=== PATIENT | female | born 1955 | race Two or more races ===

== ENCOUNTER 2021-09-15 15:32 | Emergency (ER) | payer OTHER ==
[~2021-09-15] VITALS: Ht 157.5 cm; Wt 68.0 kg
== END 2021-09-15 20:43 | disposition home or self-care (01) ==
LOC: ER 15:32
DX: S00.03XA Contusion of scalp, initial encounter (principal); S06.0X0A Concussion without loss of consciousness, initial encounter; S50.01XA Contusion of right elbow, initial encounter; M54.2 Cervicalgia; W18.09XA Striking against other object with subsequent fall, initial encounter; Y93.E9 Activity, other interior property and clothing maintenance; Y92.012 Bathroom of single-family (private) house as the place of occurrence of the external cause; Y99.8 Other external cause status